=== PATIENT | male | born 1985 | race Caucasian/White ===

== ENCOUNTER 2018-10-21 09:05 | Emergency (ER) | payer SELFPAY ==
[~2018-10-21] VITALS: Ht 172.7 cm; Wt 90.9 kg
[2018-10-21 09:15] VITALS: Ht 172.7 cm; Wt 90.9 kg
[2018-10-21] MEDS ORDERED: DIPHTH/TET/ACEL PERTUSS (ADULT) 0.5 ML VIAL IM* ONE (09:30)
--- NOTE | 2018-10-21 09:56 | PSY ---
Date/Time of Note Date/Time of Note DATE: 10/21/18 TIME: 09:52 Psychiatric Subjective Eval Consent Pt consented to telemedicine: Yes Subjective Evaluation Chief Complaint: PT BIB RA 39 for drug use and suicide attempt by cuttind L arm History of present illness 33 yo male with hx meth use BIB EMS s/p SA by cutting his left arm. Pt was combative, was placed in restraints. This MD attempted to evaluate the pt. Pt is sedated; pr SW pt was positive for amphetamines. SW and a security guad attempted to wake the pt up but he is too drowsy, obtunded. Not able to complete consultation due to pt's sedation. Allergies: Coded Allergies: Lorazepam (Verified Allergy, Unknown, 03/24/07) Olanzapine (Verified Allergy, Unknown, 03/24/07) Paroxetine (Verified Allergy, Unknown, 03/06/07) Psychiatric Objective Eval Mental Status Examination: Appearance: Disheveled Eye Contact: Other Psychomotor Activity: Other Speech: Slurred Suicidal: Yes Cognition: Drowsy, Obtunded Laboratory Results Laboratory Tests Test 10/21/18 09:23 White Blood Count 8.5 10^3/ul Red Blood Count 4.38 10^6/ul Hemoglobin 13.3 g/dl Hematocrit 38.7 % Mean Corpuscular Volume 88.4 fl Mean Corpuscular Hemoglobin 30.4 pg Mean Corpuscular Hemoglobin Concent 34.4 g/dl Red Cell Distribution Width 12.4 % Platelet Count 262 10^3/UL Mean Platelet Volume 9.5 fl Immature Granulocytes % 0.200 % Neutrophils % 72.1 % Lymphocytes % 19.2 % Monocytes % 7.0 % Eosinophils % 1.1 % Basophils % 0.4 % Nucleated Red Blood Cells % 0.0 /100WBC Immature Granulocytes # 0.020 10^3/ul Neutrophils # 6.2 10^3/ul Lymphocytes # 1.6 10^3/ul Monocytes # 0.6 10^3/ul Eosinophils # 0.1 10^3/ul Basophils # 0.0 10^3/ul Nucleated Red Blood Cells # 0.0 10^3/ul Assessment and Plan Assessment/Diagnosis Diagnosis AMPHETAMINE USE DISORDER Recommendation/Plan Medication Management N/A Discharge Disposition: Other (Other) Legal Status: Voluntary Other NOT ABLE TO COMPLETE CONSULTATION DUE TO PT'S SEDATION. CATHY GONSALVES MD Oct 21, 2018 09:56
--- NOTE | 2018-10-21 12:03 | ERD ---
ER Documentation Chief Complaint Chief Complaint PT BIB RA 39 for drug use and suicide attempt by jimmy Kaplan arm HPI Patient is a 33-year-old male who presents after cutting himself with a razor blade. He admitted to using methamphetamines. He did in a potential suicide attempt. He was brought in by ambulance and police. Please note the history and physical exam is limited given his drug use at this time. ROS All systems reviewed and are negative except as per history of present illness. Allergies Allergies: Coded Allergies: Lorazepam (Verified Allergy, Unknown, 03/24/07) Olanzapine (Verified Allergy, Unknown, 03/24/07) Paroxetine (Verified Allergy, Unknown, 03/06/07) PMhx/Soc History of Surgery: No Hx Neurological Disorder: No Hx Respiratory Disorders: No Hx Cardiac Disorders: No Hx Psychiatric Problems: Yes Hx Miscellaneous Medical Probl: No Hx Alcohol Use: Yes Hx Substance Use: Yes (meth?) Hx Tobacco Use: No Smoking Status: Never smoker FmHx Unable to obtain Physical Exam Vitals Vital Signs Date Temp Pulse Resp B/P (MAP) Pulse Ox O2 O2 Flow FiO2 Time Delivery Rate 10/21/18 97.7 77 20 118/86 100 09:15 (97) Physical Exam Const: No acute distress Head: Atraumatic Eyes: Normal Conjunctiva ENT: Normal External Ears, Nose and Mouth. Neck: Full range of motion. No meningismus. Resp: Clear to auscultation bilaterally Cardio: Regular rate and rhythm, no murmurs Abd: Soft, non tender, non distended. Normal bowel sounds Skin: Superficial cuts to the left forearm without deep laceration Back: No midline or flank tenderness Ext: No cyanosis, or edema Neur: Awake but appears intoxicated with drugs Psych: Suicide attempt Result Diagram: 10/21/1892210/21/18922 Results 24 hrs Laboratory Tests Test 10/21/18 09:23 White Blood Count 8.5 10^3/ul Red Blood Count 4.38 10^6/ul Hemoglobin 13.3 g/dl Hematocrit 38.7 % Mean Corpuscular Volume 88.4 fl Mean Corpuscular Hemoglobin 30.4 pg Mean Corpuscular Hemoglobin Concent 34.4 g/dl Red Cell Distribution Width 12.4 % Platelet Count 262 10^3/UL Mean Platelet Volume 9.5 fl Immature Granulocytes % 0.200 % Neutrophils % 72.1 % Lymphocytes % 19.2 % Monocytes % 7.0 % Eosinophils % 1.1 % Basophils % 0.4 % Nucleated Red Blood Cells % 0.0 /100WBC Immature Granulocytes # 0.020 10^3/ul Neutrophils # 6.2 10^3/ul Lymphocytes # 1.6 10^3/ul Monocytes # 0.6 10^3/ul Eosinophils # 0.1 10^3/ul Basophils # 0.0 10^3/ul Nucleated Red Blood Cells # 0.0 10^3/ul Sodium Level 139 mmol/L Potassium Level 3.4 mmol/L Chloride Level 103 mmol/L Carbon Dioxide Level 27 mmol/L Anion Gap 9 Blood Urea Nitrogen 15 mg/dl Creatinine 0.75 mg/dl Est Glomerular Filtrat Rate mL/min > 60 mL/min Glucose Level 117 mg/dl Calcium Level 8.8 mg/dl Total Bilirubin 1.0 mg/dl Direct Bilirubin 0.00 mg/dl Indirect Bilirubin 1.0 mg/dl Aspartate Amino Transf (AST/SGOT) 40 IU/L Alanine Aminotransferase (ALT/SGPT) 33 IU/L Alkaline Phosphatase 71 IU/L Total Protein 7.4 g/dl Albumin 4.1 g/dl Globulin 3.30 g/dl Albumin/Globulin Ratio 1.24 Salicylates Level < 1.0 mg/dl Acetaminophen Level < 10.0 ug/ml Ethyl Alcohol Level < 10.0 mg/dl Current Medications Medications Dose Sig/Martha Start Time Status Last (Trade) Ordered Route PRN Stop Time Admin Dose Reason Admin Diphtheria/ 0.5 ml ONCE ONCE 10/21/18 DC 10/21/18 Tetanus/Acell IM* 09:30 10/21/18 10:34 Pertussis 09:31 (Adacel) Procedures/MDM Patient is a 33-year-old male who presents with cutting himself. The patient admits to using methamphetamines. The patient was medically cleared with laboratory studies and urine sample. He was seen by psychiatry. The patient was placed on a 5150 hold by police. The patient will be transferred to a psychiatric facility for further psych care. Departure Diagnosis: Primary Impression: Methamphetamine abuse Additional Impression: Suicide threat or attempt Condition: JORDON Salgado MD Oct 21, 2018 12:03
[2018-10-21 15:53] VITALS: BP 119/72; PULSE 72; RESP 20
== END 2018-10-21 15:53 ==
LOC: E/R 09:05
DX: F15.10 Other stimulant abuse, uncomplicated (principal); S51.812A Laceration without foreign body of left forearm, initial encounter; R40.2132 Coma scale, eyes open, to sound, at arrival to emergency department; R40.2362 Coma scale, best motor response, obeys commands, at arrival to emergency department; R40.2252 Coma scale, best verbal response, oriented, at arrival to emergency department; X78.8XXA Intentional self-harm by other sharp object, initial encounter; Y92.9 Unspecified place or not applicable; Z23 Encounter for immunization
CPT/HCPCS: 80053; 80307; 85025; 90471; 90715

== ENCOUNTER 2018-10-21 19:00 | Emergency (ER) | payer SELFPAY ==
[~2018-10-21] VITALS: Ht 180.3 cm; Wt 75.0 kg
[2018-10-21 19:18] VITALS: Ht 180.3 cm; Wt 75.0 kg
--- NOTE | 2018-10-21 22:13 | ERD ---
ER Documentation Chief Complaint Chief Complaint bib 111 ambulnz: returned from [facility], refused adms. due to dx HPI This is a patient that was just discharged from the ER to [facility] but was brought back by ambulance after he was refused admission there. The patient was placed on a 5150 when he originally got here. He reportedly used methamphetamines and made superficial cuts on his arms. He was placed on a 5150 and tele-psychiatry evaluation was attempted, however the patient would not speak with tele-psychiatry. Currently the patient has no complaints. All he wants to do his sleep. He does agree to talk to tele-psychiatry now. He is denying any suicidal or homicidal ideations. Denies any hallucinations. He does admit to amphetamine use. ROS All systems reviewed and are negative except as per history of present illness. Medications Home Meds Unable to Obtain Active Prescriptions or Reported Meds Allergies Allergies: Coded Allergies: lorazepam (Verified Allergy, Unknown, 10/21/18) olanzapine (Verified Allergy, Unknown, 10/21/18) paroxetine (Verified Allergy, Unknown, 10/21/18) PMhx/Soc Medical and Surgical Hx: Unable to obtain History of Surgery: No Hx Neurological Disorder: Yes (Seizures) Hx Respiratory Disorders: No Hx Cardiac Disorders: No Hx Psychiatric Problems: Yes Hx Miscellaneous Medical Probl: No Hx Alcohol Use: Yes Hx Substance Use: Yes (meth?) Hx Tobacco Use: No Smoking Status: Current every day smoker FmHx Unable to obtain Physical Exam Vitals Vital Signs Date Temp Pulse Resp B/P (MAP) Pulse Ox O2 O2 Flow FiO2 Time Delivery Rate 10/22/18 97.5 79 16 116/65 96 Room Air 00:58 (82) 10/21/18 98.9 82 19 118/72 100 19:18 (87) Physical Exam Const: No acute distress Head: Atraumatic Eyes: Normal Conjunctiva, PERRLA ENT: Normal External Ears, Nose and Mouth. Neck: Full range of motion. Resp: No respiratory distress. Clear to auscultation bilaterally Cardio: Regular rate and rhythm, no murmurs Ext: No cyanosis, or edema. Bilateral upper extremities with bandages in place, clean dry and intact Neur: Awake and alert, normal speech, moving all extremities. No facial asymmetry. Psych: Somnolent but arousable. Cooperative. Flat affect. No SI or HI. No hallucinations. Results 24 hrs Current Medications Medications Dose Sig/Martha Start Time Status Last (Trade) Ordered Route PRN Stop Time Admin Dose Reason Admin Divalproex 500 mg QHS PO 10/22/18 Sodium 21:00 (Depakote) Procedures/MDM Patient was recently medically cleared after being placed on a 5150 and sent to a psychiatric facility, but subsequently sent back. For this reason, now that the patient was communicating with me and agreed to psychiatric evaluation, I had the tele-psychiatrist evaluate the patient. He still feels that the patient requires an involuntary hold and inpatient psychiatric placement. He did recommend starting the patient on Depakote 500 mg daily, which was ordered. Reportedly the patient has a history of seizure disorder as well. Patient was signed out to the oncoming ED physician, pending psychiatric placement. Departure Diagnosis: Primary Impression: Abnormal behavior Additional Impressions: Suicide attempt Methamphetamine abuse Condition: DESIREE Keating MD Oct 21, 2018 22:13
--- NOTE | 2018-10-21 22:30 | PSY ---
Date/Time of Note Date/Time of Note DATE: 10/21/18 TIME: 22:23 Psychiatric Subjective Eval Consent Pt consented to telemedicine: Yes Subjective Evaluation Patient location: emergency Chief Complaint: bib 111 ambulnz: returned from [facility], refused adms. due to dx Medical history Problems Medical Problems: (1) Methamphetamine abuse Status: Acute (2) Suicide threat or attempt Status: Acute Allergies: Coded Allergies: lorazepam (Verified Allergy, Unknown, 10/21/18) olanzapine (Verified Allergy, Unknown, 10/21/18) paroxetine (Verified Allergy, Unknown, 10/21/18) Assessment and Plan Recommendation/Plan Discharge Disposition: Psychiatric inpatient Legal Status: Continue involuntary hold Assessment Additional comments: IDENTIFYING INFORMATION: 33 year old Male patient who is currently located at the hospital and for whom psychiatric consultation was requested. SOURCES OF INFORMATION: The patient who appears to be somewhat reliable and the medical records; the nursing staff. CHIEF COMPLAINT: I was feeling suicidal". HISTORY OF PRESENT ILLNESS: The patient was interviewed via telemedicine in the presence of and under the supervision of nursing staff of the hospital. The consent to conducting this interview via telemedicine was obtained by the nursing staff at the hospital. JOSESITO Hercules reports that the patient presented with cutting his left arm in the context of meth use. Pt was sent to an outside hospital, was having autistic traits and was sent back. Is on a 5150 hold; per ppw, the pt attempted suicide, had a visible injury, a laceration to arm, and did not appear fully coherent. The patient reports having SI earlier and cut himself, admits to , paranoid delusions of the local gangs being after him. The patient denies using alcohol heavily or regularly. The patient denies using any other substances. In terms of past psychiatric history, the patient reports having a history of past psychiatric hospitalizations. The patient reports having a history of past suicide attempts. Past medication trials: depakote, dilantin. PAST MEDICAL HISTORY: seizure disorder. CURRENT MEDICATIONS: none. ALLERGIES TO MEDICATIONS: zyprexa, ativan, paxil. LABORATORY TESTS: CBC with hemoglobin of 13.3, hematocrit 38.7,, CMP unremarkable, no alcohol detected, UDS pending. SOCIAL HISTORY: homeless, complicated marital status, has kids, not on disability, employed [employer]. REVIEW OF SYSTEMS: Constitutional (e.g., fever, weight loss): negative; Eyes, Ears, Nose, Mouth, Throat: negative; Cardiovascular: negative; Respiratory: negative; Gastrointestinal: negative; Genitourinary: negative; Musculoskeletal: negative; Integumentary (skin and/or breast): negative; Neurological: negative; Psychiatric: as per HPI; Endocrine: negative; Hematologic/Lymphatic: negative; Allergic/Immunologic: negative. MENTAL STATUS EXAMINATION: General Appearance and Behavior: Calm, cooperative with the interview, pleasant with the current interviewer, makes fair eye contact, fairly groomed, no abnormal movements noted, Speech: Regular rate, regular rhythm, normal latency, normal volume, somewhat decreased amount, Flow of thought:illogical, tangential at times, Content of thought: + auditory hallucinations, no visual hallucinations, + delusions, positive for suicidal ideation; no homicidal ideation, Mood: "depressed", Affect: dysthymic, dysphoric, not reactive, Attention: normal based on the interview, Insight: fair, Judgment: poor, Memory: normal based on the interview, Sensorium: alert and oriented to person, place and date. ASSESSMENT: The patient's presentation and history are consistent with the diagnosis of unspecified psychotic disorder. The patient presents with an exacerbation of psychosis in the context of medication noncompliance, psychosocial stressors and substance use. PLAN: - Medication management: Would start depakote 500 mg po qhs. Would start haloperidol 5 mg IM PRN severe agitation q4 hours. Would start diphenhydramine 50 mg IM PRN severe agitation q4 hours. Will defer to the inpatient psychiatry team for other medication changes. - Labs: No other laboratory tests are needed at this time. - Psychotherapy: Provided supportive psychotherapy and psychoeducation. - Disposition: Would recommend involuntary admission to the inpatient psychiatric unit given the severity of the patient's psychiatric condition and the fact that the patient is an imminent danger to self and/or others so long as the patient has been cleared medically for admission to psychiatry. Inpatient psychiatric admission is at this time the least restrictive environment where the patient can receive the psychiatric care that is needed. Would place on suicide precautions. The patient fulfills criteria for being placed on an involuntary hold for being a danger to self due to a psychiatric disorder. Discussed about the above plan with Dr. Soria. RIAN FIGUEREDO MD Oct 21, 2018 22:30
[2018-10-22] MEDS ORDERED: IBUPROFEN 800 MG TAB PO ONE (10:00)
[2018-10-22 11:10] VITALS: BP 118/78; PULSE 78; RESP 14
[2018-10-22] MEDS ORDERED: DIVALPROEX (EC) 500 MG TAB PO SCH (21:00)
== END 2018-10-22 11:11 | disposition home or self-care (01) ==
LOC: E/R 19:00
DX: F15.10 Other stimulant abuse, uncomplicated (principal)
CPT/HCPCS: 80307; 81001; 99283